=== PATIENT | male | born 1960 ===

== ENCOUNTER 2018-05-27 07:55 | Emergency (ER) | payer SELFPAY ==
[2018-05-27] MEDS ORDERED: cloNIDine HCl 0.1 MG TAB ONE (08:10)
[2018-05-27 08:28] LABS: Absolute Lymphocytes (CBC) 2.4 K/uL (0.7-4.9); Absolute Monocytes 0.6 K/uL (0.1-1.3); Absolute Neutrophil 6.6 K/uL (1.8-8.0); Basophils % 0.6 % (0-1.3); Eosinophils % 1.6 % (0-4.4); Hematocrit 39.4 % (39.6-49.0); Lymphocytes % 24.3 % (15.3-44.8); MPV 7.2 fL (7.6-11.3); Monocytes % 5.9 % (3.3-12.3); RBC Red Blood Cell Count 4.59 M/uL (4.33-5.43)
[2018-05-27 08:35] LABS: Potassium 3.9 mmol/L (3.5-5.1)
--- NOTE | 2018-05-27 08:52 | EDPHYS ---
Physician Documentation [facility] Name: Ludin Braswell Age: 57 yrs Sex: Male : 1960 Arrival Date: 05/27/2018 Time: 07:56 Bed 20 Private MD: ED Physician Eduardo Nicholas HPI: 05/27 08:05 This 57 yrs old Male presents to ER via EMS with complaints of High Blood Pressure. rn 08:05 The patient has elevated blood pressure and discovered this at home. Onset: The rn symptoms/episode began/occurred at an unknown time. Modifying factors: The symptoms are aggravated by discontinuation of meds. Severity of symptoms: At its worst the blood pressure was moderate, in the emergency department the blood pressure is unchanged. The patient has experienced similar episodes in the past. 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 Patient feels fine, denies chest pain/sob/abd pain/headache/vision changes/focal neurological problems.. Historical: - Allergies: 08:17 No Known Allergies; tw2 - Home Meds: 08:16 Metoprolol Tartrate Oral [Active]; nifedipine Oral [Active]; tw2 - PMHx: 08:16 Diabetes - NIDDM; Hypertension; tw2 - PSHx: 08:16 None; tw2 - Immunization history:: Adult Immunizations. - Family history:: not pertinent. - Social history:: Smoking status: . - Ebola Screening: : Patient denies travel to an Ebola-affected area in the 21 days before illness onset. - Hospitalizations: : No recent hospitalization is reported. ROS: 08:05 Constitutional: Negative for fever, chills, and weight loss, Eyes: Negative for injury, rn pain, redness, and discharge, Cardiovascular: Negative for chest pain, palpitations, and edema, Respiratory: Negative for shortness of breath, cough, wheezing, and pleuritic chest pain, Abdomen/GI: Negative for abdominal pain, nausea, vomiting, diarrhea, and constipation, MS/Extremity: Negative for injury and deformity, Skin: Negative for injury, rash, and discoloration, Neuro: Negative for headache, weakness, numbness, tingling, and seizure. Exam: 08:05 Constitutional: This is a well developed, well nourished patient who is awake, alert, rn and in no acute distress. Head/Face: Normocephalic, atraumatic. Eyes: Pupils equal round and reactive to light, extra-ocular motions intact. Lids and lashes normal. Conjunctiva and sclera are non-icteric and not injected. Cornea within normal limits. Periorbital areas with no swelling, redness, or edema. Neck: Trachea midline, no thyromegaly or masses palpated, and no cervical lymphadenopathy. Supple, full range of motion without nuchal rigidity, or vertebral point tenderness. No Meningismus. Cardiovascular: Regular rate and rhythm, No pulse deficits. Respiratory: Lungs have equal breath sounds bilaterally, clear to auscultation. No increased work of breathing, no retractions or nasal flaring. Abdomen/GI: soft, non-tender MS/ Extremity: Pulses equal, no cyanosis. Neurovascular intact. Full, normal range of motion. Equal circumference. Neuro: Awake and alert, GCS 15, oriented to person, place, time, and situation. Cranial nerves II-XII grossly intact. Motor strength 5/5 in all extremities. Sensory grossly intact. Cerebellar exam normal. Normal gait. Vital Signs: 07:57 BP 227 / 120; Pulse 65; Resp 23; Temp 98.3(O); Pulse Ox 98% on R/A; Weight 112.04 kg; tw2 Height 5 ft. 11 in. (180.34 cm); Pain 0/10; 08:15 BP 198 / 110; Pulse 63; tw2 08:42 BP 220 / 105; Pulse 64; Resp 22; Pulse Ox 97% on R/A; tw2 08:50 BP 198 / 96; rn 08:56 BP 198 / 96; Pulse 66; Resp 17; Pulse Ox 97% on R/A; tw2 07:57 Body Mass Index 34.45 (112.04 kg, 180.34 cm) tw2 MDM: 07:56 Patient medically screened. rn 08:50 Differential diagnosis: hypertensive crisis, Malignant HTN. Data reviewed: vital signs, rn nurses notes, lab test result(s), EKG, and as a result, I will discharge patient. Counseling: I had a detailed discussion with the patient and/or guardian regarding: the historical points, exam findings, and any diagnostic results supporting the discharge/admit diagnosis, lab results, the need for outpatient follow up, to return to the emergency department if symptoms worsen or persist or if there are any questions or concerns that arise at home. Counseling: I had a detailed discussion with the patient and/or guardian regarding: the presence of at least one elevated blood pressure reading (>120/80) during this emergency department visit. Special discussion: I have referred the patient to see his PCP for further evaluation of high blood pressure. I discussed with the patient/guardian in detail that at this point there is no indication for admission to the hospital. It is understood, however, that if the symptoms persist or worsen the patient needs to return immediately for re-evaluation. ED course: Pt has meds waiting for him at pharmacy, return precautions given and understood.. 05/27 07:57 Order name: CBC with Diff; Complete Time: 08:50 rn 05/27 07:57 Order name: Basic Metabolic Panel; Complete Time: 08:50 rn 05/27 07:57 Order name: IV Start; Complete Time: 08:11 rn 05/27 07:57 Order name: EKG; Complete Time: 07:57 rn 05/27 07:57 Order name: EKG - Nurse/Tech; Complete Time: 08:11 rn Administered Medications: 08:03 Drug: cloNIDine 0.2 mg Route: PO; tw2 08:58 Follow up: Response: No adverse reaction; Blood pressure is lowered tw2 08:59 Follow up: Response: No adverse reaction; Blood pressure is lowered tw2 Disposition: 05/27/18 08:51 Discharged to Home. Impression: Hypertension. - Condition is Stable. - Discharge Instructions: Hypertension. - Medication Reconciliation Form, Thank You Letter, Antibiotic Education, Prescription Opioid Use, Work release form form. - Follow up: Private Physician; When: As needed; Reason: Recheck today's complaints, Re-evaluation by your physician. - Problem is new. - Symptoms have improved. Signatures: Dispatcher [employer] EDEduardo Carcamo MD MD rn Wise, Tara, RN RN tw2 Corrections: (The following items were deleted from the chart) 09:00 08:51 05/27/2018 08:51 Discharged to Home. Impression: Hypertension. Condition is tw2 Stable. Forms are Medication Reconciliation Form, Thank You Letter, Antibiotic Education, Prescription Opioid Use. Follow up: Private Physician; When: As needed; Reason: Recheck today's complaints, Re-evaluation by your physician. Problem is new. Symptoms have improved. rn
--- NOTE | 2018-05-27 08:52 | ER ---
Nurse's Notes [facility] Name: Ludin Braswell Age: 57 yrs Sex: Male : 1960 Arrival Date: 05/27/2018 Time: 07:56 Bed 20 Private MD: Diagnosis: Hypertension Presentation: 05/27 07:50 Presenting complaint: EMS states: pt normally checks his blood pressure every morning, tw2 took his medication at 4am, it was 147/119, then he got to work and it was 240/130 per histology supervisor, Hx: HTN, DM. Transition of care: patient was not received from another setting of care. Onset of symptoms was May 27, 2018. Risk Assessment: Do you want to hurt yourself or someone else? Patient reports no desire to harm self or others. Initial Sepsis Screen: Does the patient meet any 2 criteria? No. Patient's initial sepsis screen is negative. Does the patient have a suspected source of infection? No. Patient's initial sepsis screen is negative. Care prior to arrival: None. 07:50 Method Of Arrival: EMS: [facility] tw2 07:50 Acuity: FRANCIA 3 tw2 Triage Assessment: 07:50 General: Appears in no apparent distress. Behavior is calm, cooperative, appropriate tw2 for age. Pain: Denies pain. Historical: - Allergies: 08:17 No Known Allergies; tw2 - Home Meds: 08:16 Metoprolol Tartrate Oral [Active]; nifedipine Oral [Active]; tw2 - PMHx: 08:16 Diabetes - NIDDM; Hypertension; tw2 - PSHx: 08:16 None; tw2 - Immunization history:: Adult Immunizations. - Family history:: not pertinent. - Social history:: Smoking status: . - Ebola Screening: : Patient denies travel to an Ebola-affected area in the 21 days before illness onset. - Hospitalizations: : No recent hospitalization is reported. Screenin:14 Abuse screen: Denies threats or abuse. Nutritional screening: No deficits noted. tw2 Tuberculosis screening: No symptoms or risk factors identified. Fall Risk None identified. Assessment: 08:17 General: Appears in no apparent distress. Behavior is calm, cooperative, appropriate tw2 for age. Pain: Denies pain. Neuro: Level of Consciousness is awake, alert, obeys commands, Oriented to person, place, time, situation. Cardiovascular: Denies chest pain, shortness of breath, Heart tones S1 S2 Patient's skin is warm and dry. Respiratory: Airway is patent Respiratory effort is even, unlabored, Respiratory pattern is regular, symmetrical, Breath sounds are clear bilaterally. GI: No signs and/or symptoms were reported involving the gastrointestinal system. Abdomen is round non-distended, Bowel sounds present X 4 quads. : No signs and/or symptoms were reported regarding the genitourinary system. EENT: No signs and/or symptoms were reported regarding the EENT system. Derm: Skin is dry. Musculoskeletal: Range of motion: intact in all extremities. 08:43 Reassessment: Patient appears in no apparent distress at this time. No changes from tw2 previously documented assessment. Patient and/or family updated on plan of care and expected duration. Pain level reassessed. Patient is alert, oriented x 3, equal unlabored respirations, skin warm/dry/pink. 08:56 Reassessment: Patient appears in no apparent distress at this time. No changes from tw2 previously documented assessment. Patient and/or family updated on plan of care and expected duration. Pain level reassessed. Patient is alert, oriented x 3, equal unlabored respirations, skin warm/dry/pink. Vital Signs: 07:57 BP 227 / 120; Pulse 65; Resp 23; Temp 98.3(O); Pulse Ox 98% on R/A; Weight 112.04 kg; tw2 Height 5 ft. 11 in. (180.34 cm); Pain 0/10; 08:15 BP 198 / 110; Pulse 63; tw2 08:42 BP 220 / 105; Pulse 64; Resp 22; Pulse Ox 97% on R/A; tw2 08:50 BP 198 / 96; rn 08:56 BP 198 / 96; Pulse 66; Resp 17; Pulse Ox 97% on R/A; tw2 07:57 Body Mass Index 34.45 (112.04 kg, 180.34 cm) tw2 ED Course: 07:52 Placed in gown. Bed in low position. Side rails up X 1. monitoring specialist on. Pulse ox tw2 on. NIBP on. 07:55 Arm band placed on. tw2 07:56 Patient arrived in ED. tw2 07:56 Eduardo Nichloas MD is Attending Physician. rn 07:57 Triage completed. tw2 08:07 Inserted saline lock: 20 gauge in left antecubital area, using aseptic technique. Blood tw2 collected. 08:10 Yeny Altman, RN is Primary Nurse. tw2 08:58 No provider procedures requiring assistance completed. IV discontinued, intact, tw2 bleeding controlled, No redness/swelling at site. Pressure dressing applied. Administered Medications: 08:03 Drug: cloNIDine 0.2 mg Route: PO; tw2 08:58 Follow up: Response: No adverse reaction; Blood pressure is lowered tw2 08:59 Follow up: Response: No adverse reaction; Blood pressure is lowered tw2 Outcome: 08:51 Discharge ordered by . rn 08:58 Discharged to home ambulatory. tw2 08:58 Condition: stable 08:58 Discharge instructions given to patient, Instructed on discharge instructions, follow up and referral plans. 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 tw2 Signatures: Eduardo Nicholas MD MD rn Wise, Tara, RN RN tw2
--- NOTE | 2018-05-27 09:24 | EKG ---
Test Date: 2018-05-27 Test Time: 07:57:26 Plant Care Worker: OLIVER MEASUREMENT RESULTS: Intervals: Rate: 78 WV: 142 QRSD: 88 QT: 432 QTc: 492 [place]: P: 63 WV: 142 QRS: 63 T: 101 INTERPRETIVE STATEMENTS: Normal sinus rhythm Possible Left atrial enlargement Left ventricular hypertrophy with repolarization abnormality Prolonged QT Abnormal ECG No previous ECG available for comparison Electronically Signed On 05-27-18 09:23:50 HEALTHCARE FACILITY ADMINISTRATOR by Micha Gordon
== END 2018-05-27 09:00 | disposition home or self-care (01) ==
LOC: ER 07:55
DX: I10 Essential (primary) hypertension (principal); R94.31 Abnormal electrocardiogram [ECG] [EKG]; E11.9 Type 2 diabetes mellitus without complications; Z79.899 Other long term (current) drug therapy
CPT/HCPCS: 36415; 80048; 85025; 93005; 99284